=== PATIENT | male | born 1985 | race Caucasian/White ===

== ENCOUNTER 2019-06-24 13:36 | Emergency (ER) | payer OTHER ==
[~2019-06-24] VITALS: Ht 160 cm; Wt 68.0 kg
--- NOTE | 2019-06-24 13:48 | NUR ---
Patient walked into ER with steady gait,A/Ox3 speaking with clear speech stating right hand numbness and weakness. Patient states he was sleeping at [facility] and woke up with symptoms. Denies SOB,CP. No distress noted.
--- NOTE | 2019-06-24 14:03 | NUR ---
Patient discharged to home in stable conditon with girlfriend taking patient home. Written and verbal after care instructions given. Patient verbalizes understanding of instructions. Walked out of ER with no distress noted
== END 2019-06-24 14:05 | disposition home or self-care (01) ==
LOC: ER 13:36
DX: G56.31 Lesion of radial nerve, right upper limb (principal); K21.9 Gastro-esophageal reflux disease without esophagitis; F15.10 Other stimulant abuse, uncomplicated
CPT/HCPCS: A4663